=== PATIENT | male | born 1985 | race Two or more races ===

== ENCOUNTER 2022-10-30 15:36 | Outpatient (CLI) | payer OTHER | END 2022-10-30 15:44 | disposition home or self-care (01) | LOC: RAD 15:36 | PROVIDERS: ATTEND Internal Medicine | DX: R06.02 Shortness of breath (principal) ==

== ENCOUNTER 2025-03-15 13:12 | Emergency (ER) | payer OTHER ==
[~2025-03-15] VITALS: Ht 172.7 cm; Wt 77.1 kg
[2025-03-15] MEDS ORDERED: LIDOCAINE HCL 1% 10ML VIAL ONE (13:58)
[2025-03-15] MEDS ORDERED: TETANUS & DIPHTHERIA TOX,ADULT 0.5 ML VIAL IM ONE (14:00)
[2025-03-15] MEDS ORDERED: FAMOtidine 200mg/20ml VIAL ONE (14:03)
[2025-03-15] MEDS ORDERED: BACITRACIN-NEOMYCIN-POLYMYXIN 0.9 GM PACKET TOP ONE (14:18)
== END 2025-03-15 14:57 | disposition home or self-care (01) ==
LOC: ER 13:12
DX: S51.011A Laceration without foreign body of right elbow, initial encounter (principal); W45.8XXA Other foreign body or object entering through skin, initial encounter; Y93.89 Activity, other specified; Y92.018 Other place in single-family (private) house as the place of occurrence of the external cause; Y99.9 Unspecified external cause status